=== PATIENT | male | born 1970 | race Caucasian/White ===

== ENCOUNTER 2017-04-18 10:16 | Day surgery (SDC) | payer MEDICAID, OTHER ==
[2017-04-18] MEDS ORDERED: LIDOCAINE 1% 2 ML INJ ID PRN (10:55)
[2017-04-18] MEDS ORDERED: LR 1,000 ML IV ONE (10:55)
--- NOTE | 2017-04-18 11:35 | PDANEPAE ---
ANE History of Present Illness GERD ANE Past Medical History - Cardiovascular History Hx Hypertension: Yes Hx Arrhythmias: No Hx Chest Pain: No Hx Coronary Artery / Peripheral Vascular Disease: No Hx CHF / Valvular Disease: No Hx Palpitations: No - Pulmonary History Hx COPD: No Hx Asthma/Reactive Airway Disease: No Hx Recent Upper Respiratory Infection: No Hx Oxygen in Use at Home: No Hx Sleep Apnea: Yes Sleep Apnea Screening Result - Last Documented: Negative - Neurologic History Hx Cerebrovascular Accident: No Hx Seizures: No Hx Dementia: No Neurologic History Comment: severe migraine H/A -uses Rx - Endocrine History Hx Diabetes: No - Renal History Hx Renal Disorders: No - Liver History Hx Hepatic Disorders: No - Neurological & Psychiatric Hx Hx Neurological and Psychiatric Disorders: Yes Neurological / Psychiatric History Comment: occ cervical and lumbar pain - Cancer History Hx Cancer: No - Congenital Disorder History Hx Congenital Disorders: No - GI History Hx Gastrointestinal Disorders: Yes Gastrointestinal History Comment: reflux - Other Health History Other Health History: HIV -stable w/antiretroviral:Triumeq - Chronic Pain History Chronic Pain: No - Surgical History Prior Surgeries: L knee-3 surgeries. R knee-1 surgery. septoplasty-wrong sx- have been sinus sx. tonsillectomy age 4 ANE Review of Systems Review of Systems: - Exercise capacity METS (RN): 4 METS ANE Patient History - Allergies Allergies/Adverse Reactions: bee stings Allergy (Uncoded 04/11/17 10:12) Anaphylaxis - Home Medications Home Medications: Axiron 04/11/17 [Last Taken Unknown] BENADRYL 04/11/17 [Last Taken Unknown] EPIPEN 04/11/17 [Last Taken Unknown] Excedrin Tablet (*) 04/11/17 [Last Taken Unknown] MAGNESIUM 04/11/17 [Last Taken Unknown] Nasonex 04/11/17 [Last Taken Unknown] Omeprazole 04/11/17 [Last Taken Unknown] Propranolol HCl 04/11/17 [Last Taken Unknown] Rizatriptan 04/11/17 [Last Taken Unknown] Seroquel 04/11/17 [Last Taken Unknown] Sertraline HCl 04/11/17 [Last Taken Unknown] Sudafed 30mg (OTC) 04/11/17 [Last Taken Unknown] Triumeq Tablet 04/11/17 [Last Taken Unknown] Vitamin B Complex 04/11/17 [Last Taken Unknown] - NPO status NPO Since - Liquids (Date): 04/18/17 NPO Since - Liquids (Time): 10:50 NPO Since - Solids (Date): 04/17/17 NPO Since - Solids (Time): 23:00 - Smoking Hx Smoking Status: Never smoked ANE Labs/Vital Signs - Vital Signs Blood Pressure: 143/102 Heart Rate: 77 Respiratory Rate: 14 O2 Sat (%): 97 Height: 185.42 cm Weight: 79.379 kg ANE Physical Exam - Airway Neck exam: FROM Mallampati Score: Class 1 Mouth exam: normal dental/mouth exam - Pulmonary Pulmonary: no respiratory distress - Cardiovascular Cardiovascular: regular rate and rhythym - ASA Status ASA Status: II ANE Anesthesia Plan Total IV Anesthesia: Yes
[2017-04-18] MEDS ORDERED: PROPOFOL 200 MG/20 ML VIAL ONE ×3 (11:54→12:05)
--- NOTE | 2017-04-18 11:56 | PDGENHP ---
History & Physical Chief Complaint: GERD, dysphagia Relevant Physical Exam: GEN: NAD. Cardiac: RRR. Lungs: CTA B. Abd: Soft, nt, nd
[2017-04-18] MEDS ORDERED: NALOXONE HCL 0.4 MG/ML INJ IVP PRN (12:06)
[2017-04-18] MEDS ORDERED: PROPOFOL/EMULSION 500 MG/50 ML BOTTLE IV ONE (12:13)
--- NOTE | 2017-04-18 12:20 | GIREPORT ---
[facility] Surgical Services - Endoscopy Department Patient Name: Sudeep Rodriguez Procedure Date: 04/18/2017 11:42 AM Patient Type: Outpatient Attending / ER Physician: Ollie Duran MD Procedure: Upper GI endoscopy Indications: Dysphagia, Heartburn Providers: Ollie Duran MD Medicines: Monitored Anesthesia Care Complications: No immediate complications. Description of Procedure: After obtaining informed consent, the endoscope was passed under direct vision. Throughout the procedure, the patient's blood pressure, pulse, and oxygen saturations were monitored continuous ly. The Endoscope was introduced through the mouth, and advanced to the second part of duodenum. The upper GI endoscopy was accomplished without difficulty. The patient tolerated the procedure well . Findings: No endoscopic abnormality was evident in the esophagus to explain the patient's complaint of dysphagia. It was decided, however, to proceed with dilation of the esophagus. A guidewire was p laced and the scope was withdrawn. Dilation was performed with a Savary dilator with mild resistance a t 45 Fr. Estimated blood loss was minimal. Localized mild inflammation was found in the gastric antrum. Biopsies were taken with a cold for ceps for histology. Verification of patient identification for the specimen was done by the physician and nurse using the patient's name and date. Estimated blood loss was minimal. The examined duodenum was normal. Estimated Blood Loss: Estimated blood loss: none. Post Op Diagnosis: - No endoscopic esophageal abnormality to explain patient's dysphagia. Esophagus dilated. Dilated. - Gastritis. Biopsied. - Normal examined duodenum. Recommendation: - Discharge patient to home (with escort). - Resume previous diet. - Continue present medications. - Use Prilosec (omeprazole) 20 mg PO daily. - Avoid NSAIDS. - Await pathology results. Results are available within 10 days. - Thank you for allowing me to participate in the care of your patient. Attending Participation: I personally performed the entire procedure. Ollie Duran MD Ollie Duran MD 04/18/2017 12:19:43 PM Number of Addenda: 0 Note Initiated On: 04/18/2017 11:42 AM [email or web address]
--- NOTE | 2017-04-18 12:32 | POSTANESTH ---
Post Anesthetic Evaluation Cardiovascular Status: Normal, Stable Respiratory Status: Normal, Stable Level of Consciousness/Mental Status: Can Participate in Eval Pain Control: Adequate, Prn Tx Ordered Nausea/Vomiting Control: Adequate, Prn Tx Ordered Complications Possibly Related to Anesthesia: None Noted
[2017-04-18 13:35] VITALS: TEMP 97.3
[2017-04-18 13:48] VITALS: PULSE 65
[2017-04-18 14:01] VITALS: BP 138/98; O2SAT 99
[2017-04-18 18:25] VITALS: RESP 16
== END 2017-04-18 14:50 | disposition home or self-care (01) ==
LOC: FSGY 10:16
PROVIDERS: ATTEND Internal Medicine Gastroenterology
PROC: 0DB68ZX Excision of Stomach, Via Natural or Artificial Opening Endoscopic, Diagnostic (ICD-10-PCS; principal; 2017-04-18 11:30)
DX: K29.70 Gastritis, unspecified, without bleeding (principal); K21.9 Gastro-esophageal reflux disease without esophagitis; R13.10 Dysphagia, unspecified
CPT/HCPCS: J2704

== ENCOUNTER → 2017-05-11 | Outpatient (CLI) | payer MEDICAID | LOC: FIMAGING 09:58 | PROVIDERS: ATTEND Nurse Practitioner | DX: M19.071 Primary osteoarthritis, right ankle and foot (principal); E29.1 Testicular hypofunction ==

== ENCOUNTER → 2018-05-07 | Outpatient (CLI) | payer MEDICAID | LOC: FLAB 11:54 | PROVIDERS: ATTEND Nurse Practitioner | DX: M50.321 Other cervical disc degeneration at C4-C5 level (principal); M50.322 Other cervical disc degeneration at C5-C6 level; M50.323 Other cervical disc degeneration at C6-C7 level; R97.20 Elevated prostate specific antigen [PSA]; R85.619 Unspecified abnormal cytological findings in specimens from anus; J02.9 Acute pharyngitis, unspecified; B20 Human immunodeficiency virus [HIV] disease | CPT/HCPCS: 84154-90; 87536-90 ==